=== PATIENT | male | born 1980 | race Caucasian/White ===

== ENCOUNTER → 2016-09-29 | Outpatient (CLI) | payer OTHER ==
--- NOTE | 2016-09-29 21:18 | PN ---
This patient is seeing me in follow-up regarding his obstructive sleep apnea. The patient was diagnosed having HARRY back in 2013 and his disease was moderate in severity, with an AHI of 23. Over the past 2 years the patient has gained 75 pounds. Note that back then he used to weigh 194 and currently he is 269. He is currently on CPAP pressure of 9 cm of water and using an AirFit P10 nasal pillow. He was also noted the patient's blood pressure was considerably high today, it was 190/140. This is a new finding for him and he has not been noted to have any elevated blood pressure nor he has been having any focal neurological deficits, numbness, tingling, or headache or nausea, vomiting, or any other complaints. He tells me that he is in mainly to recheck and he would like to have his supplies refilled. He has been compliant with CPAP therapy and he has been using every night without any interruption. He has been averaging more than 5 hours of CPAP use every night. No nasal congestion. No postnasal drainage. No nocturnal chest pain. No shortness of breath. No heartburn. BP is 190/140, pulse 80, respirations 14, temperature 98.0. Saturation 97% on room air. BMI is 40.3. Weight is 269, height is 68 inches. [place] score is 7. GENERAL APPEARANCE: Calm, comfortable, obese. HEENT: Short neck. Crowding of posterior pharynx. There is no goiter or neck masses. LUNGS: Diminished breath sounds bilaterally; otherwise clear. HEART: Sounds are regular rate and rhythm. Normal S1, S2. No S3. No murmurs. ABDOMEN: Soft, nontender. No organomegaly. EXTREMITIES: No edema. No cyanosis or clubbing. IMPRESSION: 1. Obstructive sleep apnea, moderate in severity at baseline and based on a sleep study from 2013, the patient's AHI was 23. 2. Obesity with significant weight gain, and the patient's weight is up to 269 with a body mass index of 40.3. 3. Hypertension with poor blood pressure control. PLAN: 1. Immediate follow-up with the primary care physician regarding blood pressure control. 2. Patient is asymptomatic and the patient will be purchasing his blood pressure machine and monitor his blood pressure at home and discuss with his PCP. 3. Refill all of his CPAP supplies. 4. No need for adjustments on CPAP pressure for now, we will keep at the pressure of 9 cm of water. 5. Encourage weight loss. 6. See me back in 6 months' time in follow-up regarding any adjustments on his CPAP pressure.
== END | disposition home or self-care (01) ==
LOC: SLEEP 15:21
PROVIDERS: ATTEND Internal Medicine Critical Care Medicine
DX: G47.33 Obstructive sleep apnea (adult) (pediatric) (principal); Z68.41 Body mass index [BMI] 40.0-44.9, adult; I10 Essential (primary) hypertension

== ENCOUNTER → 2020-04-02 | Outpatient (CLI) | payer BC ==
--- NOTE | 2020-04-02 16:26 | PN ---
PROGRESS NOTE Yusuf is 40, coming in for a followup regarding obstructive sleep apnea. His last evaluation was done around 3 years ago. He has moderate severe disease with an AHI of 23, and his weight is stable at 269. He is using an older generation Respironics unit which is set at a pressure of 11 cm of water. He remains to be quite compliant. He has been averaging 6-1/2 hours of CPAP use per night and his CPAP use for more than 4 hours is 100%. Note, the patient has no specific complaints. No hypersomnia or sleepiness. At time, his machine is becoming noisy and he is wondering whether he may need to get a new machine at a later stage. I think his machine is functional for now. I noted his blood pressure being quite elevated and he has not taken his blood pressure medication. His BP is 206/121. No chest pain. No angina. No palpitation. [place] score is at 10. No stroke. No blurred vision. No headaches. No altered mentation. BP is 206/120, pulse is 66, respirations 16, temperature 98.1, saturation is 99% on room air. Height is 5, 8, weight is 264. GENERAL APPEARANCE: Calm, comfortable. HEAD: Atraumatic, normocephalic. NECK: Supple. No JVD. No goiter or neck mass. LUNGS: Clear to auscultation. HEART: Heart sounds are regular rate and rhythm, normal S1, S2, no murmurs. ABDOMEN: Soft, nontender. No organomegaly. EXTREMITIES: No edema, no cyanosis or clubbing. NEUROLOGIC: Awake and alert, there is no focal neurological deficit. IMPRESSION: 1. HARRY, moderate severe AHI of 23, currently on CPAP pressure of 11 cm of water. Treatment successful. 2. Obesity, body mass index of 39.5. 3. Poorly controlled blood pressure. PLAN: 1. Immediate blood pressure attention and the patient will be asked to go back home and take his blood pressure medication. Follow up with primary care physician. 2. I gave him an AirFit P10 and I gave him also an AirFit P30I to try and let me know if this is something that he would like to use in the future. 3. He is going to continue his current CPAP machine with the possibility of upgrading him to a newer-generation ResMed unit at a later stage, especially if the machine becomes quite noisy and malfunctioning. Will continue to follow. See me back in a year's time. MMODL / IJN: [id number] /
== END | disposition home or self-care (01) ==
LOC: SLEEP 15:09
PROVIDERS: ATTEND Internal Medicine Critical Care Medicine
DX: G47.33 Obstructive sleep apnea (adult) (pediatric) (principal); E66.9 Obesity, unspecified; Z68.39 Body mass index [BMI] 39.0-39.9, adult; Z99.89 Dependence on other enabling machines and devices

== ENCOUNTER 2021-04-22 08:50 | Emergency (ER) | payer BC ==
[2021-04-22 09:02] VITALS: TEMP 98.6
[2021-04-22] MEDS ORDERED: hydrALAZINE HCL 20 MG/ML 1 ML VIAL IVP STA ×2 (09:35→10:35)
--- NOTE | 2021-04-22 09:39 | ED ---
General Adult HPI - General Chief complaint: Recheck/Abnormal Lab/Rx Stated complaint: High BP/Abnormal EKG Time Seen by Provider: 04/22/21 09:00 Source: patient, RN notes reviewed, old records reviewed Mode of arrival: ambulatory Limitations: no limitations - History of Present Illness Initial comments: This is a 41-year-old male who presents emergency Department stating that yesterday he took his blood pressure was elevated so he went to the emergency department but it was such a long with eventually went home. Patient states he came in again today because he knows it was still high and patient states that he has no chest pain no difficulty breathing no palpitations. Patient denies any recent fever chills or cough. Patient states he is to have high blood pressure but he stopped taking her medications when his blood pressure came down after he lost quite a bit of weight. Patient denies any abdominal pain patient's nausea vomiting diarrhea. Patient denies any headache patient denies any numbness weakness. Patient denies any blurred vision. - Related Data Home Medications Medication Instructions Recorded Confirmed Cetirizine HCl [Zyrtec] 10 mg PO DAILY 04/22/21 04/22/21 Unknown Otc Nasal [place] 1 spray EA NOSTRIL HS PRN 04/22/21 04/22/21 amLODIPine [Norvasc] 5 mg PO DAILY 04/22/21 04/22/21 Previous Rx's Medication Instructions Recorded amLODIPine [Norvasc] 5 mg PO DAILY #20 tab 04/22/21 Allergies Allergy/AdvReac Type Severity Reaction Status Date / Time Penicillins Allergy Unknown Verified 04/22/21 10:04 Childhood Review of Systems ROS Statement: Those systems with pertinent positive or pertinent negative responses have been documented in the HPI. ROS Other: All systems not noted in ROS Statement are negative. Past Medical History Past Medical History: Hypertension History of Any Multi-Drug Resistant Organisms: None Reported Additional Past Surgical History / Comment(s): wisdom teeth, colonoscopies Past Psychological History: No Psychological Hx Reported Smoking Status: Never smoker Past Alcohol Use History: Rare Past Drug Use History: None Reported General Exam - General Exam Comments Initial Comments: GENERAL: Patient is well-developed and well-nourished. Patient is nontoxic and well- hydrated and is in no acute distress. ENT: Neck is soft and supple. No significant lymphadenopathy is noted. Oropharynx is clear. Moist mucous membranes. Neck has full range of motion without eliciting any pain. EYES: The sclera were anicteric and conjunctiva were pink and moist. Extraocular movements were intact and pupils were equal round and reactive to light. Eyeli ds were unremarkable. PULMONARY: Unlabored respirations. Good breath sounds bilaterally. No audible rales rhonchi or wheezing was noted. CARDIOVASCULAR: There is a regular rate and rhythm without any murmurs gallops or rubs. ABDOMEN: Soft and nontender with normal bowel sounds. No palpable organomegaly was noted. There is no palpable pulsatile mass. SKIN: Skin is clear with no lesions or rashes and otherwise unremarkable. NEUROLOGIC: Patient is alert and oriented x3. Cranial nerves II through XII are grossly intact. Motor and sensory are also intact. Normal speech, volume and content. Symmetrical smile. MUSCULOSKELETAL: Normal extremities with adequate strength and full range of motion. No lower extremity swelling or edema. No calf tenderness. LYMPHATICS: No significant lymphadenopathy is noted PSYCHIATRIC: Normal psychiatric evaluation. Limitations: no limitations Course Vital Signs 04/22/21 04/22/21 04/22/21 08:57 09:42 10:00 Temperature 98.6 F Pulse Rate 89 70 95 Respiratory 17 18 18 Rate Blood Pressure 240/135 218/128 213/117 O2 Sat by Pulse 97 97 96 Oximetry 04/22/21 04/22/21 04/22/21 10:35 11:00 11:30 Temperature Pulse Rate 79 69 71 Respiratory 18 18 18 Rate Blood Pressure 204/117 171/117 168/105 O2 Sat by Pulse 97 96 96 Oximetry 04/22/21 12:00 Temperature Pulse Rate 68 Respiratory 18 Rate Blood Pressure 183/102 O2 Sat by Pulse 96 Oximetry Medical Decision Making - Medical Decision Making EKG shows normal sinus rhythm at 75 bpm ME interval is on a 36 QRS is 96 Q-T intervals 44 QTC is 451. Patient's EKG shows inverted T waves in 1 and aVL as well as V6. There is no ST segment elevation. Chest x-ray shows no acute abnormality. Patient received hydralazine labetalol and Vasotec emergency department. His blood pressure came down and at this point time since it took so much to bring it on I wanted to keep him in the emergency department but patient wanted to follow-up with his primary medical care doctor because he also has a doctor appointment today at 4:00 with the sleep center. Patient will be started on Norvasc which is the medication is on for and he will follow-up tomorrow with his family doctor - Lab Data Result diagrams: 04/22/21 09:42 04/22/21 09:42 Lab Results 04/22/21 04/22/21 04/22/21 Range/Units 09:42 09:42 09:42 WBC 8.0 (3.8-10.6) k/uL RBC 5.34 (4.30-5.90) m/uL Hgb 16.6 (13.0-17.5) gm/dL Hct 46.6 (39.0-53.0) % MCV 87.1 (80.0-100.0) fL MCH 31.1 (25.0-35.0) pg MCHC 35.7 (31.0-37.0) g/dL RDW 12.5 (11.5-15.5) % Plt Count 189 (150-450) k/uL MPV 8.3 Neutrophils % 62 % Lymphocytes % 24 % Monocytes % 6 % Eosinophils % 5 % Basophils % 1 % Neutrophils # 5.0 (1.3-7.7) k/uL Lymphocytes # 1.9 (1.0-4.8) k/uL Monocytes # 0.5 (0-1.0) k/uL Eosinophils # 0.4 (0-0.7) k/uL Basophils # 0.1 (0-0.2) k/uL Hyperchromasia Slight PT 10.0 (9.0-12.0) sec INR 0.9 (<1.2) APTT 23.9 (22.0-30.0) sec Sodium 141 (137-145) mmol/L Potassium 3.8 (3.5-5.1) mmol/L Chloride 103 (98-107) mmol/L Carbon Dioxide 26 (22-30) mmol/L Anion Gap 12 mmol/L BUN 18 (9-20) mg/dL Creatinine 1.18 (0.66-1.25) mg/dL Est GFR (CKD-EPI)AfAm 87 (>60 ml/min/1.73 sqM) Est GFR (CKD-EPI)NonAf 75 (>60 ml/min/1.73 sqM) Glucose 92 (74-99) mg/dL Calcium 10.2 (8.4-10.2) mg/dL Magnesium 2.2 (1.6-2.3) mg/dL Total Bilirubin 1.1 (0.2-1.3) mg/dL AST 42 (17-59) U/L ALT 32 (4-49) U/L Alkaline Phosphatase 86 (38-126) U/L Troponin I (0.000-0.034) ng/mL Total Protein 8.7 H (6.3-8.2) g/dL Albumin 5.2 H (3.5-5.0) g/dL 04/22/21 Range/Units 09:42 WBC (3.8-10.6) k/uL RBC (4.30-5.90) m/uL Hgb (13.0-17.5) gm/dL Hct (39.0-53.0) % MCV (80.0-100.0) fL MCH (25.0-35.0) pg MCHC (31.0-37.0) g/dL RDW (11.5-15.5) % Plt Count (150-450) k/uL MPV Neutrophils % % Lymphocytes % % Monocytes % % Eosinophils % % Basophils % % Neutrophils # (1.3-7.7) k/uL Lymphocytes # (1.0-4.8) k/uL Monocytes # (0-1.0) k/uL Eosinophils # (0-0.7) k/uL Basophils # (0-0.2) k/uL Hyperchromasia PT (9.0-12.0) sec INR (<1.2) APTT (22.0-30.0) sec Sodium (137-145) mmol/L Potassium (3.5-5.1) mmol/L Chloride (98-107) mmol/L Carbon Dioxide (22-30) mmol/L Anion Gap mmol/L BUN (9-20) mg/dL Creatinine (0.66-1.25) mg/dL Est GFR (CKD-EPI)AfAm (>60 ml/min/1.73 sqM) Est GFR (CKD-EPI)NonAf (>60 ml/min/1.73 sqM) Glucose (74-99) mg/dL Calcium (8.4-10.2) mg/dL Magnesium (1.6-2.3) mg/dL Total Bilirubin (0.2-1.3) mg/dL AST (17-59) U/L ALT (4-49) U/L Alkaline Phosphatase (38-126) U/L Troponin I 0.014 (0.000-0.034) ng/mL Total Protein (6.3-8.2) g/dL Albumin (3.5-5.0) g/dL Disposition Clinical Impression: Hypertensive urgency Disposition: HOME SELF-CARE Condition: Good Instructions (If sedation given, give patient instructions): Hypertension (ED) Additional Instructions: Patient is to return to the emergency department if is any headache blurred vision chest pain or difficulty breathing. Patient's take Norvasc as prescribed. Patient should follow-up with primary medical care doctor tomorrow. Prescriptions: amLODIPine [Norvasc] 5 mg PO DAILY #20 tab Is patient prescribed a controlled substance at d/c from ED?: No Referrals: Gregor Ny MD [Primary Care Provider] - 1-2 days Time of Disposition: 12:23
[2021-04-22 10:00] LABS: Basophils # (A) 0.1 k/uL (0-0.2); Basophils % (A) 1 %; Eosinophils # (A) 0.4 k/uL (0-0.7); Eosinophils % (A) 5 %; HCT 46.6 % (39.0-53.0); HGB 16.6 gm/dL (13.0-17.5); Hyperchromasia Slight; INR 0.9 (<1.2); Lymphocytes # (A) 1.9 k/uL (1.0-4.8); Lymphocytes % (A) 24 %; MCH 31.1 pg (25.0-35.0); MCHC 35.7 g/dL (31.0-37.0); MCV 87.1 fL (80.0-100.0); Mean Platelet Volume 8.3; Monocytes # (A) 0.5 k/uL (0-1.0); Monocytes % (A) 6 %; Neutrophils % (A) 62 %; Partial Thromboplastin Time 23.9 sec (22.0-30.0); Platelet Count 189 k/uL (150-450); RBC 5.34 m/uL (4.30-5.90); RDW 12.5 % (11.5-15.5)
[2021-04-22 10:07] LABS: Albumin 5.2 g/dL (3.5-5.0); Calcium 10.2 mg/dL (8.4-10.2); Magnesium 2.2 mg/dL (1.6-2.3); Potassium 3.8 mmol/L (3.5-5.1); Total Bilirubin 1.1 mg/dL (0.2-1.3); Total Protein 8.7 g/dL (6.3-8.2)
--- NOTE | 2021-04-22 10:10 | XR ---
EXAMINATION TYPE: XR chest 2V DATE OF EXAM: 04/22/2021 COMPARISON: NONE HISTORY: Hypertension and chest pain. TECHNIQUE: Frontal and lateral views of the chest are obtained. FINDINGS: Elevation and eventration anterior aspect right hemidiaphragm. There is no focal air space opacity, pleural effusion, or pneumothorax seen. The cardiac silhouette size is upper limits of norm al. The osseous structures are intact. Overlying EKG leads. IMPRESSION: No acute process.
[2021-04-22] MEDS: LABETALOL 5 MG/ML VIAL MDV IVP STA (10:49)
[2021-04-22] MEDS ORDERED: LORATADINE 10 MG TAB PO STA (11:28)
[2021-04-22] MEDS ORDERED: ENALAPRILAT 1.25 MG/ML 1 ML VIAL IVP STA (12:08)
[2021-04-22 12:35] VITALS: BP 198/104; PULSE 73; RESP 20
== END 2021-04-22 12:36 | disposition home or self-care (01) ==
LOC: EC 08:50
DX: I16.0 Hypertensive urgency (principal); Z88.0 Allergy status to penicillin; Z79.899 Other long term (current) drug therapy
CPT/HCPCS: 36415; 93005; 80053; 83735; 84484; 85025; 85610; 85730; 71046; 99284; 96374; 96375; J0360

== ENCOUNTER → 2021-04-22 | Outpatient (CLI) | payer BC ==
--- NOTE | 2021-04-22 17:17 | PN ---
PROGRESS NOTE This patient is coming in for an annual check regarding obstructive sleep apnea. The patient has been diagnosed having obstructive sleep apnea, moderate to severe, and the patient has been treated with CPAP therapy. Currently he is on a CPAP pressure of 9 cm of water. He is using an AirFit P10 nasal pillow. Unfortunately, on today's evaluation, similar to last year, I have noted that the patient's blood pressure was elevated. He has noted an elevated blood pressure and he had also consulted with the emergency department and he was started on Norvasc earlier this morning. The patient is not having any headaches for now. No altered mentation. No stroke symptoms. He will be following up with his primary care physician regarding his elevated blood pressure. Nevertheless, his sleep apnea has been adequately treated. He is on a CPAP pressure of 9. He is using the machine on an average of 6.7 hours per night, and his CPAP use for more than 4 hours is 100%. Leak is on the order of 1 L/minute and the patient's weight has been stable. His AHI is down to 1 while being on CPAP therapy. No hypersomnia or sleepiness during the day. Sleep quality is good. No chest pain. No angina. No palpitations. No focal neurological deficit. No stroke. [place] score is only 1. REVIEW OF SYSTEMS: Fourteen-point review of systems was done, and the positive findings are all mentioned above in the history of present illness. PHYSICAL EXAMINATION: BP is 190/117, pulse 87, respirations 16, saturation 98% on room air, temperature 97.2, weight is 267. GENERAL APPEARANCE: Obese, calm, comfortable. HEAD: Atraumatic, normocephalic. NECK: Supple. No JVD. No goiter or neck masses. Mallampati class 4. LUNGS: Diminished. Otherwise clear. HEART: Heart sounds are regular rate and rhythm. Normal S1, S2. No S3, S4. No murmurs. ABDOMEN: Soft, nontender. No organomegaly. EXTREMITIES: No edema. No cyanosis or clubbing. NEUROLOGIC: Awake and alert. There is no focal neurological deficit. PSYCHIATRIC: Negative for anxiety or depression. IMPRESSION: 1. Obstructive sleep apnea, moderate to severe, AHI of 23, currently on CPAP at a pressure of 9. Successful treatment is documented. 2. Obesity without any significant weight gain or weight loss. Body mass index is 39. 3. Poorly controlled blood pressure. PLAN: 1. Immediately refer back to the primary care physician for blood pressure control. Currently on Norvasc. 2. Continue CPAP therapy at the same level of pressure at 9 cm of water. 3. Give the patient AirFit P30i nasal pillows. 4. See me back in a year's time in followup. Treatment is successful for now. MMODL / IJN: [id number] /
== END | disposition home or self-care (01) ==
LOC: SLEEP 15:55
PROVIDERS: ATTEND Internal Medicine Critical Care Medicine
DX: G47.33 Obstructive sleep apnea (adult) (pediatric) (principal); E66.9 Obesity, unspecified; Z68.39 Body mass index [BMI] 39.0-39.9, adult

== ENCOUNTER → 2022-01-30 | Outpatient (CLI) | payer BC ==
[~2022-01-30] MED LIST: BEBTELOVIMAB (EUA) 175 MG/2 ML VIAL IV NR; SODIUM CHLORIDE 0.9% 500 ML 500 ML in EMPTY BAG 1 BAG IV PRN
[2022-01-30 12:56] VITALS: RESP 16; TEMP 98.3
[2022-01-30 14:13] VITALS: BP 128/83; PULSE 71
== END | disposition home or self-care (01) ==
LOC: PROCWHC3 12:06
PROVIDERS: ATTEND Nurse Practitioner Adult Health
DX: U07.1 COVID-19 (principal)
CPT/HCPCS: Q0222; M0222